=== PATIENT | male | born 1945 | race Hispanic/Latino ===

== ENCOUNTER 2018-04-26 11:45 | Emergency (ER) | payer MEDICARE, OTHER ==
[2018-04-26 12:30] LABS: #Basophils 0.1 thou/uL (0.0-0.2); #Eosinphils 0.3 thou/uL (0.0-0.7); #Lymphocytes 1.6 thou/uL (1.20-3.40); #Monocytes 0.6 thou/uL (0.11-0.59); #Neutrophils 3.9 thou/uL (1.40-6.50); %Basophils 1.4 % (0.0-1.0); %Lymphocytes 24.8 % (21.0-51.0); %Monocytes 9.1 % (0.0-10.0); %Neutrophils 59.7 % (42.0-75.0); Hemoglobin 10.3 g/dL (14.0-18.0); Mean Corpuscular HGB CONC 33.4 g/dL (32.0-36.0); Mean Corpuscular Hemoglobin 31.4 pg (27.0-31.0); Mean Corpuscular Volume 94.1 fL (78.0-98.0); Platelet Count 237 thou/uL (130-400); RBC Distribution Width 12.8 % (11.5-14.5); Red Blood Cell (RBC) Count 3.28 mill/uL (4.70-6.10); White Blood Cell (WBC) Count 6.5 thou/uL (4.8-10.8)
[2018-04-26 12:36] LABS: ALT (SGPT) 11 U/L (8-55); AST (SGOT) 9 U/L (5-34); Albumin 3.9 g/dL (3.4-4.8); Alkaline Phosphatase 121 U/L (40-150); Anion Gap 19 mmol/L (10-20); BUN (Urea Nitrogen) 41 mg/dL (8.4-25.7); Bilirubin, Total 0.6 mg/dL (0.2-1.2); Calc. Creatinine Clearance 0 mL/min (70-130); Carbon Dioxide 26 mmol/L (23-31); Chloride 101 mmol/L (98-107); Estimated GFR-MDRD 5; Globulin 3.8 g/dL (2.4-3.5); Glucose 106 mg/dL (80-115); Potassium 4.5 mmol/L (3.5-5.1); Protein, Total 7.7 g/dL (5.8-8.1); Sodium 141 mmol/L (136-145)
[2018-04-26 12:41] LABS: Troponin I 0.023 ng/mL (< 0.028)
--- NOTE | 2018-04-26 13:43 | CT ---
CT CERVICAL SPINE: 04/26/2018 HISTORY: A spiral CT of the cervical spine was performed for evaluation following trauma. TECHNIQUE: Axial slices were acquired and then coronal and sagittal reconstructions were done. FINDINGS: No fracture, dislocation, or acute bony change is seen. There is some slight disk space narrowing at C5-C6 with some endplate changes in the adjacent vertebrae, especially the superior endplate of C6. This is obviously longstanding. The C1 to dens distance is normal, and the soft tissues are normal in thickness. There appear to be some very minor concentric disk bulges at C3 and below, which are o f no real importance. Findings by level follow: C1-C2: No acute findings. C2-C3: No acute findings. C3-C4: Mild right foraminal narrowing due to osteophytes. C4-C5: Moderate bilateral foraminal narrowing due to osteophytes. C5-C6: Minimal foraminal narrowing. Endplate changes, as described above. C6-C7: No acute findings. C7-T1: No acute findings. There is a bony density separate from the tip of the spinous process of C 7 that is probably an old injury. It is certainly not acute. T1-T2: No acute findings. The lung apices are clear. The soft tissues of the neck are unremarkable. An incidental finding on the study is mucosal thickening in both the maxillary sinuses, though they are not seen in their enti rety to comment on with any detail. IMPRESSION: 1. No evidence of acute traumatic change. 2. Degenerative changes, as noted above. 3. Maxillary sinusitis. POS: HOME
--- NOTE | 2018-04-26 13:52 | CT ---
CT OF THE BRAIN WITHOUT CONTRAST: DATE: 04/26/2018. FINDINGS: A noncontrast CT was done for evaluation following trauma. Axial slices were acquired followed by co arjun and sagittal reconstructions. Diffuse atrophy is present. The ventricles are normal in size for age and atrophy. There is some mo re focal atrophy in the right posterior frontal region that is probably from an old stroke. A lacuna r infarct from the past is suggested around the left centrum semiovale. No acute bleeding either in the brain or extradural locations could be seen. There was no sign of mass. There were no findings suggestive of an acute stroke. The skull appears intact. Mucosal thickening is prominent in the right maxillary sinus and there is complete opacification of the left maxillary sinus. The surrounding bones all appeared intact. IMPRESSION: 1. Atrophy and chronic ischemic changes, including an old stroke in the right posterior frontal nyasia on and small lacunar infarcts on the left. 2. No acute traumatic findings. 3. Maxillary sinusitis. POS: HOME
--- NOTE | 2018-04-26 13:54 | CT ---
CT OF THE CHEST, ABDOMEN AND PELVIS: Date: 04-26-[address] of the chest, abdomen, and pelvis was done after giving IV contrast. Axial slices were acqu ired and then coronal and sagittal reconstructions were done. FINDINGS: No acute traumatic changes were appreciated. The mediastinum shows no mass, hematoma, or significant adenopathy. There is no pericardial effusion. Calcification is seen in the aorta and in the coronary arteries. The thoracic spine appears intact. No sternal fractures were appreciated. The lungs are clear except for some dependent atelectasis in the lower lobes posteriorly. No effusion s or pneumothorax was seen. The ribs appeared intact. CT OF THE ABDOMEN AND PELVIS: The major organs all appear intact with no sign of laceration or hematoma. The liver, spleen, pancrea s, gallbladder, adrenal glands, and abdominal aorta showed no acute findings. Each kidney was slightl y atrophic. No free air or free fluid was present. There is no distention of thickening of bowel. CT of the pelvis showed no pelvic masses, fluid collections, or inflammatory changes. The prostate is large and slightly inhomogeneous. It is about 5 cm in diameter. The bony pelvis appears intact. There does appear to be bilateral spondylolysis of L5 with minimal sp ondylolisthesis. Additionally, there is an anterior compression and deformity of the L4 vertebral bod y with fusion of L3 and L4 posteriorly. This was not present in 2014 and probably represents an old i njury. It does not appear acute. There is no comprise of the spinal canal. IMPRESSION: 1. No acute abdominal or pelvic findings referable to recent trauma. 2. Deformity of L4 that suggests an old traumatic injury here. While not present in 2014, the appeara nce is that of something old and not new. All scans called to Dr. Vargas at 1304 on 04-26-18. POS: HOME
== END 2018-04-26 14:23 | disposition home or self-care (01) ==
LOC: BURERS 11:45
DX: S20.211A Contusion of right front wall of thorax, initial encounter (principal); I12.0 Hypertensive chronic kidney disease with stage 5 chronic kidney disease or end stage renal disease; E11.22 Type 2 diabetes mellitus with diabetic chronic kidney disease; N18.6 End stage renal disease; Z99.2 Dependence on renal dialysis; Z79.82 Long term (current) use of aspirin; Z79.899 Other long term (current) drug therapy; V43.52XA Car driver injured in collision with other type car in traffic accident, initial encounter
CPT/HCPCS: 70450; 71260; 72125; 74177; 80053; 82553; 84484; 85025; 93005; G0390; 36415

== ENCOUNTER 2019-04-11 09:38 | Emergency (ER) | payer MEDICARE ==
--- NOTE | 2019-04-11 12:20 | RAD ---
RIGHT HUMERUS 2 VIEWS: Date: 04/11/19 No acute fracture seen. Humerus appears intact. IMPRESSION: No acute findings. POS: [facility]
--- NOTE | 2019-04-11 12:22 | RAD ---
RIGHT SHOULDER: Date: 04/11/19 No major fracture or dislocation seen. The AC joint is not widened. There is some irregularity along the inferior lip of the glenoid fossa. This might be from a prior dislocation. It seems less likely t o be due from acute trauma. The visible adjacent ribs appear intact. Some ossification along the infe rior surface of the acromion could potentially effect nearby rotator cuff tendons. IMPRESSION: No acute findings. Possible old injury to the inferior lip of the glenoid. POS: [facility]
== END 2019-04-11 10:18 | disposition home or self-care (01) ==
LOC: BURERS 09:38
DX: S40.021A Contusion of right upper arm, initial encounter (principal); I12.0 Hypertensive chronic kidney disease with stage 5 chronic kidney disease or end stage renal disease; E11.22 Type 2 diabetes mellitus with diabetic chronic kidney disease; N18.6 End stage renal disease; Z79.899 Other long term (current) drug therapy; W01.0XXA Fall on same level from slipping, tripping and stumbling without subsequent striking against object, initial encounter

== ENCOUNTER 2020-02-28 16:38 | Emergency (ER) | payer MEDICARE, OTHER | END 2020-02-28 17:16 | disposition home or self-care (01) | LOC: BURERS 16:38 | DX: H60.92 Unspecified otitis externa, left ear (principal); E11.22 Type 2 diabetes mellitus with diabetic chronic kidney disease; I12.0 Hypertensive chronic kidney disease with stage 5 chronic kidney disease or end stage renal disease; N18.6 End stage renal disease; Z99.2 Dependence on renal dialysis; Z87.891 Personal history of nicotine dependence | CPT/HCPCS: 99282 ==